=== PATIENT | female | born 1995 | race Caucasian/White ===

== ENCOUNTER 2022-04-22 12:31 | Inpatient (IN) ==
[2022-04-22 14:21] LABS: Hematocrit (blood only) 19.7 % (37.0-47.0); Hemoglobin 5.8 g/dl (12.0-16.0); Mean Corpuscular Hemoglobin 21.6 pg (25.0-34.0); Mean Corpuscular Hgb Conc 29.4 g/dL (32.0-36.0); Mean Corpuscular Volume 73.2 fL (80.0-100.0); Mean Platelet Volume 10.2 fL (9.4-12.4); Platelet Count 436 K/uL (130-400); RDW Coefficient of Variation 20.1 % (11.5-14.5); RDW Standard Deviation 53.6 fL (36.4-46.3); Red Blood Count 2.69 M/uL (4.20-5.40); White Blood Count 6.65 K/ul (4.8-10.8)
[2022-04-22] MEDS ORDERED: SODIUM CHLORIDE 0.9% 250 ML IV PRN (14:27)
[2022-04-22 14:28] LABS: BUN Creatinine Ratio 22.4 (10-20); Calcium 8.9 mg/dl (8.5-10.1); Creatinine Clr Calc Pharmacy 134.6 ml/min; Est GFR (African American) 149.5 ml/min; Potassium 3.7 mmol/L (3.5-5.1)
[2022-04-22] MEDS ORDERED: SODIUM CHLORIDE 0.9% 1000ML 1,000 ML IV SCH (14:30)
[2022-04-22 14:48] LABS: Partial Thromboplastin Ratio 0.8; Partial Thromboplastin Time 22.2 Seconds (21.0-31.0); Prothrombin Time 10.5 Seconds (9.0-12.0)
--- NOTE | 2022-04-22 16:32 | Ultrasound Report ---
PELVIC ULTRASOUND, TRANSABDOMINAL AND TRANSVAGINAL HISTORY: vaginal bleeding COMPARISON: Pelvic ultrasound 05/10/2021. FINDINGS: Uterus: 8.6 x 5.4 x 4.4 cm. The uterus is retroflexed. Within the posterior wall of the uterus there is an irregular avascular complex area which favors a complex fluid collection. This is new from the prior study and appears separate from the endometrium. This measures approximately 21 x 12 mm. This i s nonspecific and could represent a blood clot, focus of adenomyosis, or possibly an abscess. Endometrial stripe: 2 mm in thickness. Right ovary: Normal in size and demonstrates normal color flow. Left ovary: Normal in size and demonstrates normal color flow. Miscellaneous:Trace pelvic free fluid. IMPRESSION: Within the posterior wall of the uterus there is an irregular avascular complex area which favors a c omplex fluid collection. This is new from the prior study and appears separate from the endometrium. This measures approximately 21 x 12 mm. This is nonspecific and could represent a blood clot, focus o f adenomyosis, or possibly an abscess. ACT 112: Negative or not required by law. Electronically signed by: Pedro Pablo Schaffer M.D. 04/22/2022 4:30 PM
--- NOTE | 2022-04-22 17:29 | History & Physical Report ---
Date of Service April 22, 2022 Assessment & Plan (1) Abnormal uterine bleeding: Plan: Aygestin tid (2) Anemia: Plan: transfuse 2 units PRBC's History of Present Illness Chief Complaint: vaginal bleeding Primary Care Provider: TERRENCE PCP 26 F P1001 with onset of heavy vaginal bleeding that started last PM accompanied by some large clots. Patient continued to bleed today and had some lightheadedness when getting up to walk. She was found to be severely anemic and was ordered blood. She has a Nexplanon in her right arm and had an IUD after giving which caused heavy bleeding as well. No history of nose bleeds, clotting disorder or eay bruising. No trauma history or recent intercourse noted by patient. She had a pelvic by Dr. Snell with not much bleeding noted. HCG is negative and ultrasound was pretty much normal. Allergies Allergy/AdvReac Type Severity Reaction Status Date / Time latex Allergy Intermediate ITCHY HIVES Verified 04/22/22 17:09 Home Medications Medication Instructions Recorded Confirmed Type norethindrone acetate 1.5 1 tab PO QPM 04/22/22 04/22/22 History mg-ethinyl estradiol 30 mcg tablet () Patient History Social History Smoking Status: Never smoker Preferred Language: Polish Feels Safe at Home: Yes OB History x1 2019 AD TAKER History had poly removed from uterus in [place] in 2016 Review of Systems All systems reviewed & are unremarkable except as noted in HPI & below Physical Exam Constitutional: WD/WN, vitals as above Eyes: PERRL, conjunctivae normal, anicteric sclerae Respiratory: normal respiratory effort, lungs clear to auscultation Cardiovascular: Rate/Rhythm: regular rate and regular rhythm Gastrointestinal (Abdomen): Inspection/Auscultation: abdomen normal to inspection no mass. no guarding or rebound Musculoskeletal: Extremities: extremities normal to inspection Skin: no rashes, warm and dry Neurologic: patellar DTR's 2+ bilat, sensation intact Psychiatric: A+Ox3, euthymic affect Results & Data ([facility]) Vital Signs (Past 12 Hours) Vital Signs Temp Pulse Pulse Resp BP BP Pulse Ox 04/22/22 16:11 93 H 16 99 04/22/22 14:54 82 18 133/77 96 04/22/22 12:51 36.6 C 89 18 149/91 H 100 O2 Del Method 04/22/22 16:11 Room Air 04/22/22 14:54 Room Air 04/22/22 12:51 Room Air Laboratory Results 04/22/22 04/22/22 04/22/22 13:50 13:50 13:50 WBC 6.65 RBC 2.69 L Hgb 5.8 L* Hct 19.7 L* MCV 73.2 L MCH 21.6 L MCHC 29.4 L RDW Std Deviation 53.6 H RDW Coeff of Thomas 20.1 H Plt Count 436 H MPV 10.2 PT 10.5 INR 1.0 APTT 22.2 PTT Ratio 0.8 Sodium 137 Potassium 3.7 Chloride 107 Carbon Dioxide 26 Anion Gap 4 BUN 13 Creatinine 0.58 L Est Cr Clr Drug Dosing 134.6 Est GFR ( Amer) 149.5 Est GFR (Non-Af Amer) 129.0 BUN/Creatinine Ratio 22.4 H Glucose 89 Calcium 8.9 HCG, Quant SARS-CoV-2, RNA, NAAT Blood Type Blood Type Recheck Antibody Screen Crossmatch 04/22/22 04/22/22 04/22/22 13:50 13:55 16:09 WBC RBC Hgb Hct MCV MCH MCHC RDW Std Deviation RDW Coeff of Thomas Plt Count MPV PT INR APTT PTT Ratio Sodium Potassium Chloride Carbon Dioxide Anion Gap BUN Creatinine Est Cr Clr Drug Dosing Est GFR ( Amer) Est GFR (Non-Af Amer) BUN/Creatinine Ratio Glucose Calcium HCG, Quant < 1 SARS-CoV-2, RNA, NAAT NEGATIVE Blood Type O Positive Blood Type Recheck Antibody Screen NEGATIVE Crossmatch See Detail 04/22/22 16:16 WBC RBC Hgb Hct MCV MCH MCHC RDW Std Deviation RDW Coeff of Thomas Plt Count MPV PT INR APTT PTT Ratio Sodium Potassium Chloride Carbon Dioxide Anion Gap BUN Creatinine Est Cr Clr Drug Dosing Est GFR ( Amer) Est GFR (Non-Af Amer) BUN/Creatinine Ratio Glucose Calcium HCG, Quant SARS-CoV-2, RNA, NAAT Blood Type Blood Type Recheck O Positive Antibody Screen Crossmatch Code Status & VTE Plan VTE Prophylaxis Plan VTE Prophylaxis will be ordered: No
--- NOTE | 2022-04-22 18:01 | Emergency Department Note ---
History of Present Illness General Chief complaint: Vaginal Bleeding Stated complaint: EXCESSIVE VAGINAL BLEEDING Time Seen by Provider: 04/22/22 14:27 History of Present Illness Provider Complaint: + vaginal bleeding Onset (ago): year(s) (1) Current Pain Intensity: 0 Vaginal discharge: + dark blood and + blood clots Patient Confirmed : No Associated symptoms: no abdominal pain, no fever/chills, no rash or no seizure Patient reports that her vaginal bleeding has been on and off for the last year. Patient reports that in April 2021 she had her IUD removed later in 2021 she had her Nexplanon placed, she is not sure when that was placed. Patient reports no pelvic trauma. Last sexual intercourse was 3 weeks ago. Patient states that in the last 12 hours she has soaked 8 pads. Patient states he follows up with [facility]. Patient states she has been to [facility] ED multiple times and they have told her her hemoglobin is stable and discharge her home. No melena or hematochezia. No history of bleeding disorders. No blood thinners. Home Medications Medication Instructions Recorded Confirmed Type norethindrone acetate 1.5 1 tab PO QPM 04/22/22 04/22/22 History mg-ethinyl estradiol 30 mcg tablet () Allergies Allergy/AdvReac Type Severity Reaction Status Date / Time latex Allergy Intermediate ITCHY HIVES Verified 04/22/22 17:09 Past Med/Surg History Medical History (Updated 04/22/22 @ 18:01 by Keven Snell) Abnormal uterine bleeding No pertinent family history Surgical History (Updated 04/22/22 @ 17:56 by Keven Snell) No pertinent past surgical history Social History Smoking Status: Never smoker Preferred Language: Solomon Islander Feels Safe at Home: Yes Physical Exam Vital Signs: Vital Signs - 24 hr 04/22/22 12:51 04/22/22 14:54 04/22/22 16:11 Temperature 36.6 C Temperature Source Temporal Artery Sc an Pulse Rate 89 Pulse Rate [Apical ] 82 93 H Respiratory Rate 18 18 16 Respiratory Effort / Characteristics Non-Labored Sponta neous Respiratory Depth Normal Normal Respiratory Patter n Regular Blood Pressure 149/91 H Blood Pressure [Le ft Arm] 133/77 Blood Pressure Tasha n 110 Blood Pressure Tasha n [Left Arm] 95 Blood Pressure Pos ition Sitting Pulse Oximetry 100 96 99 Oxygen Delivery Me thod Room Air Room Air Room Air Sepsis Recent Feve r Within 48 Hours No Sepsis New/Unexpla ined Change in Men tamika Status N/A Sepsis Action Take n by Nursing No Action Required 04/22/22 17:53 Temperature 36.8 C Temperature Source Oral Pulse Rate 92 H Pulse Rate [Apical ] Respiratory Rate 15 Respiratory Effort / Characteristics Respiratory Depth Respiratory Patter n Blood Pressure 136/81 Blood Pressure [Le ft Arm] Blood Pressure Tasha n 99 Blood Pressure Tasha n [Left Arm] Blood Pressure Pos ition Sitting Pulse Oximetry 100 Oxygen Delivery Me thod Sepsis Recent Feve r Within 48 Hours Sepsis New/Unexpla ined Change in Men tamika Status Sepsis Action Take n by Nursing Physical Exam: Physical Exam HENT: Exam performed. - Head: Normocephalic and atraumatic. CV: Normal rate, regular rhythm, normal heart sounds and intact distal pulses. There is no peripheral edema. Palpable radial pulses bue. PULM/CHEST: Effort normal and breath sounds normal. No respiratory distress. No stridor. He has no wheezes. He has no rales. ABD: The abdomen is soft. There is no tenderness. NEURO: Motor and sensation grossly intact. SKIN: Pale AGRICULTURAL COMMODITIES INSPECTOR: Conducted with female nursing missileman Geena at bedside. Patient had some scant amount of blood in her vaginal vault. Cervical os is closed. No active bleeding. Course Course 1427: The patient was evaluated in room B7. A complete history and physical exam was performed Administered Medications Sodium Chloride (Nss 1000ml) 1,000 mls @ 125 mls/hr IV .Q8H MARIALUISA Stop: 05/22/22 14:29 Last Admin: 04/22/22 15:00 Dose: 125 mls/hr Documented By: OSMANY Medical Decision Making Laboratory Data Attestation: I reviewed the patient's lab results. 04/22/22 13:50 04/22/22 13:50 Lab Results 04/22/22 04/22/22 04/22/22 Range/Units 13:50 13:50 13:50 WBC 6.65 (4.8-10.8) K/ul RBC 2.69 L (4.20-5.40) M/uL Hgb 5.8 L* (12.0-16.0) g/dl Hct 19.7 L* (37.0-47.0) % MCV 73.2 L (80.0-100.0) fL MCH 21.6 L (25.0-34.0) pg MCHC 29.4 L (32.0-36.0) g/dL RDW Std Deviation 53.6 H (36.4-46.3) fL RDW Coeff of Thomas 20.1 H (11.5-14.5) % Plt Count 436 H (130-400) K/uL MPV 10.2 (9.4-12.4) fL PT 10.5 (9.0-12.0) Seconds INR 1.0 (0.9-1.1) APTT 22.2 (21.0-31.0) Seconds PTT Ratio 0.8 Sodium 137 (136-145) mmol/L Potassium 3.7 (3.5-5.1) mmol/L Chloride 107 (98-107) mmol/L Carbon Dioxide 26 (21-32) mmol/L Anion Gap 4 (3-11) BUN 13 (6-23) mg/dl Creatinine 0.58 L (0.6-1.2) mg/dl Est Cr Clr Drug Dosing 134.6 ml/min Est GFR ( Amer) 149.5 ml/min Est GFR (Non-Af Amer) 129.0 ml/min BUN/Creatinine Ratio 22.4 H (10-20) Glucose 89 (70-99(Fasting)) mg/dl Calcium 8.9 (8.5-10.1) mg/dl HCG, Quant mIU/ml SARS-CoV-2, RNA, NAAT (NEGATIVE) Blood Type Blood Type Recheck Antibody Screen Crossmatch 04/22/22 04/22/22 04/22/22 Range/Units 13:50 13:55 16:09 WBC (4.8-10.8) K/ul RBC (4.20-5.40) M/uL Hgb (12.0-16.0) g/dl Hct (37.0-47.0) % MCV (80.0-100.0) fL MCH (25.0-34.0) pg MCHC (32.0-36.0) g/dL RDW Std Deviation (36.4-46.3) fL RDW Coeff of Thomas (11.5-14.5) % Plt Count (130-400) K/uL MPV (9.4-12.4) fL PT (9.0-12.0) Seconds INR (0.9-1.1) APTT (21.0-31.0) Seconds PTT Ratio Sodium (136-145) mmol/L Potassium (3.5-5.1) mmol/L Chloride (98-107) mmol/L Carbon Dioxide (21-32) mmol/L Anion Gap (3-11) BUN (6-23) mg/dl Creatinine (0.6-1.2) mg/dl Est Cr Clr Drug Dosing ml/min Est GFR ( Amer) ml/min Est GFR (Non-Af Amer) ml/min BUN/Creatinine Ratio (10-20) Glucose (70-99(Fasting)) mg/dl Calcium (8.5-10.1) mg/dl HCG, Quant < 1 mIU/ml SARS-CoV-2, RNA, NAAT NEGATIVE (NEGATIVE) Blood Type O Positive Blood Type Recheck Antibody Screen NEGATIVE Crossmatch See Detail 04/22/22 Range/Units 16:16 WBC (4.8-10.8) K/ul RBC (4.20-5.40) M/uL Hgb (12.0-16.0) g/dl Hct (37.0-47.0) % MCV (80.0-100.0) fL MCH (25.0-34.0) pg MCHC (32.0-36.0) g/dL RDW Std Deviation (36.4-46.3) fL RDW Coeff of Thomas (11.5-14.5) % Plt Count (130-400) K/uL MPV (9.4-12.4) fL PT (9.0-12.0) Seconds INR (0.9-1.1) APTT (21.0-31.0) Seconds PTT Ratio Sodium (136-145) mmol/L Potassium (3.5-5.1) mmol/L Chloride (98-107) mmol/L Carbon Dioxide (21-32) mmol/L Anion Gap (3-11) BUN (6-23) mg/dl Creatinine (0.6-1.2) mg/dl Est Cr Clr Drug Dosing ml/min Est GFR ( Amer) ml/min Est GFR (Non-Af Amer) ml/min BUN/Creatinine Ratio (10-20) Glucose (70-99(Fasting)) mg/dl Calcium (8.5-10.1) mg/dl HCG, Quant mIU/ml SARS-CoV-2, RNA, NAAT (NEGATIVE) Blood Type Blood Type Recheck O Positive Antibody Screen Crossmatch Imaging Data Attestation: I personally reviewed and interpreted this imaging study as follows: Radiologist's Impression: Pelvis Ultrasound 04/22/22 14:45 PELVIC ULTRASOUND, TRANSABDOMINAL AND TRANSVAGINAL HISTORY: vaginal bleeding COMPARISON: Pelvic ultrasound 05/10/2021. FINDINGS: Uterus: 8.6 x 5.4 x 4.4 cm. The uterus is retroflexed. Within the posterior wall of the uterus there is an irregular avascular complex area which favors a complex fluid collection. This is new from the prior study and appears separate from the endometrium. This measures approximately 21 x 12 mm. This is nonspecific and could represent a blood clot, focus of adenomyosis, or possibly an abscess. Endometrial stripe: 2 mm in thickness. Right ovary: Normal in size and demonstrates normal color flow. Left ovary: Normal in size and demonstrates normal color flow. Miscellaneous:Trace pelvic free fluid. IMPRESSION: Within the posterior wall of the uterus there is an irregular avascular complex area which favors a complex fluid collection. This is new from the prior study and appears separate from the endometrium. This measures approximately 21 x 12 mm. This is nonspecific and could represent a blood clot, focus of adenomyosis, or possibly an abscess. ACT 112: Negative or not required by law. Electronically signed by: Pedro Pablo Schaffer M.D. 04/22/2022 4:30 PM MDM Narrative Cardiac monitoring: An order was placed for continuous cardiac monitoring. The monitor shows a rate of 90 with sinus rhythm Labs show hemoglobin of 5.8. Patient be transfused 2 packed units of red blood cells in the emergency department. External medical records were obtained based on the upper caser and in January 2022 the patient had a hemoglobin of 13. The patient had an ultrasound in January 2022 at [facility] which showed a normal thickness endometrium diffuse heterogeneity of the uterine myometrium without a distal discrete myometrial Mass. Adenomyomatosis can have this appearance. Ovaries were normal Ultrasound today showed that there is an irregular avascular complex mass/fluid collection in the posterior wall of the uterus measuring 21 x 12 mm which could represent a blood clot adenomyosis or possibly an abscess. Clinically it is not thought to be an abscess as patient has not had any fevers White blood cell count is within normal limits and her symptoms have been going on for over a year. Is most likely a blood clot. I discussed the case with METAL SMEL[facility] Dr. Metz. Dr. Nevarez came down evaluated the patient and agreed to transfuse the patient admit the patient to his service. Impression & Plan Anemia, Vaginal bleeding Discharge Plan Visit Data Chief Complaint: Vaginal Bleeding Stated Complaint: EXCESSIVE VAGINAL BLEEDING ED Provider: Keven Snell Discharge Problem: Anemia, Vaginal bleeding Patient Disposition: Admitted As Inpatient Forms Stand Alone Forms: [facility] Prescriptions Prescriptions: No Action norethindrone ac-eth estradiol [ (21)] 1.5-30 mg-mcg tablet 1 tab PO QPM Rx Instructions: PER PT "TAKES AT 1700" Referrals Referrals: PCP,NO [Primary Care Provider] -
[2022-04-22] MEDS ORDERED: IBUPROFEN 600 MG TAB PO PRN (19:18)
[2022-04-22] MEDS ORDERED: ONDANSETRON INJ 2 MG/ML 2 ML VIAL IV PRN (19:18)
[2022-04-22] MEDS ORDERED: ACETAMINOPHEN 325 MG TAB PO PRN (19:18)
[2022-04-22] MEDS: NORETHINDRONE 5 MG TAB PO SCH (20:43)
[2022-04-22] MEDS: LACTATED RINGER'S 1,000 ML IV SCH (20:43)
[2022-04-23 01:19] LABS: Hematocrit (blood only) 23.1 % (37.0-47.0); Hemoglobin 7.1 g/dl (12.0-16.0)
[2022-04-23] MEDS: LACTATED RINGER'S 1,000 ML IV SCH (04:44)
[2022-04-23] MEDS: NORETHINDRONE 5 MG TAB PO SCH (08:45)
[2022-04-23 08:56] LABS: Basophils # (auto) 0.09 K/uL (0-0.2); Basophils % (auto) 1.3 %; Eosinophils # (auto) 0.05 K/uL (0-0.50); Eosinophils % (auto) 0.7 %; Hematocrit (blood only) 24.8 % (37.0-47.0); Hemoglobin 7.9 g/dl (12.0-16.0); Immature Granulocytes # (auto) 0.03 K/uL (0.01-0.20); Immature Granulocytes % (auto) 0.4 %; Lymphocytes # (auto) 1.76 K/uL (1.2-3.4); Lymphocytes % (auto) 26.3 %; Mean Corpuscular Hgb Conc 31.9 g/dL (32.0-36.0); Mean Corpuscular Volume 75.4 fL (80.0-100.0); Mean Platelet Volume 9.6 fL (9.4-12.4); Neutrophils # (auto) 4.16 K/uL (1.40-6.50); Neutrophils % (auto) 62.3 %; Platelet Count 361 K/uL (130-400); RDW Coefficient of Variation 19.9 % (11.5-14.5); RDW Standard Deviation 54.5 fL (36.4-46.3); Red Blood Count 3.29 M/uL (4.20-5.40); White Blood Count 6.69 K/ul (4.8-10.8)
[2022-04-23 09:16] LABS: Albumin Globulin Ratio 1.9 (0.9-2); Albumin Level 3.9 gm/dl (3.4-5.0); BUN Creatinine Ratio 11.3 (10-20); Bilirubin,Total 0.6 mg/dl (0.2-1.0); Calcium 8.7 mg/dl (8.5-10.1); Creatinine Clr Calc Pharmacy 125.9 ml/min; Est GFR (African American) 146.3 ml/min; Est GFR (Non-African American) 126.2 ml/min; Globulin 2.1 gm/dl (2.5-4.0); Potassium 3.8 mmol/L (3.5-5.1)
--- NOTE | 2022-04-23 09:22 | Progress Note ---
Date of Service April 23, 2022 Assessment & Plan (1) Abnormal uterine bleeding: Plan: Aygestin tid for total of 5 days f/u in clinic for Nexplanon removal within next 2-3 days (2) Anemia: Plan: s/p 2 units PRBC's Hgb 7.9 this AM Anemia type: unspecified type Qualified Code(s): D64.9 - Anemia, unspecified Admission and Anticipated Discharge Date Admission Date: April 22, 2022 Subjective Patient comfortable in bed, has not eaten breakfast yet. Hungry. States the bleeding has significantly improved. Denies any shortness of breath, chest pain or dizziness. Otherwise feeling well Review of Systems Constitutional: as per Subjective / HPI Physical Exam Constitutional: WD/WN, vitals as above Respiratory: normal respiratory effort, lungs clear to auscultation Cardiovascular: RRR, no murmur, no edema Gastrointestinal (Abdomen): normal bowel sounds, soft, nontender, no hepatosplenomegaly Results & Data ([facility]) Vital Signs (Past 12 Hours) Vital Signs Temp Pulse Pulse Resp BP BP BP 04/23/22 07:50 37.2 C 80 18 130/80 04/23/22 04:40 36.9 C 81 18 118/71 04/22/22 23:05 37.2 C 72 18 113/68 04/22/22 22:50 37.0 C 79 18 113/67 04/22/22 22:50 37.0 C 79 18 113/67 04/22/22 21:50 36.9 C 83 16 101/59 L Pulse Ox O2 Del Method 04/23/22 07:50 100 Room Air 04/23/22 04:40 100 Room Air 04/22/22 23:05 100 04/22/22 22:50 100 04/22/22 22:50 100 Room Air 04/22/22 21:50 100 Laboratory Results Laboratory Results WBC 6.69 K/ul (4.8-10.8) 04/23/22 08:39 RBC 3.29 M/uL (4.20-5.40) L 04/23/22 08:39 Hgb 7.9 g/dl (12.0-16.0) L 04/23/22 08:39 Hct 24.8 % (37.0-47.0) L 04/23/22 08:39 MCV 75.4 fL (80.0-100.0) L 04/23/22 08:39 MCH 24.0 pg (25.0-34.0) L 04/23/22 08:39 MCHC 31.9 g/dL (32.0-36.0) L 04/23/22 08:39 RDW Std Deviation 54.5 fL (36.4-46.3) H 04/23/22 08:39 RDW Coeff of Thomas 19.9 % (11.5-14.5) H 04/23/22 08:39 Plt Count 361 K/uL (130-400) 04/23/22 08:39 MPV 9.6 fL (9.4-12.4) 04/23/22 08:39 Immature Gran % (Auto) 0.4 % 04/23/22 08:39 Neut % (Auto) 62.3 % 04/23/22 08:39 Lymph % (Auto) 26.3 % 04/23/22 08:39 [place] % (Auto) 9.0 % 04/23/22 08:39 Eos % (Auto) 0.7 % 04/23/22 08:39 Baso % (Auto) 1.3 % 04/23/22 08:39 Neut # (Auto) 4.16 K/uL (1.40-6.50) 04/23/22 08:39 Lymph # (Auto) 1.76 K/uL (1.2-3.4) 04/23/22 08:39 [place] # (Auto) 0.60 K/uL (0.11-0.59) H 04/23/22 08:39 Eos # (Auto) 0.05 K/uL (0-0.50) 04/23/22 08:39 Baso # (Auto) 0.09 K/uL (0-0.2) 04/23/22 08:39 Immature Gran # (Auto) 0.03 K/uL (0.01-0.20) 04/23/22 08:39 PT 10.5 Seconds (9.0-12.0) 04/22/22 13:50 INR 1.0 (0.9-1.1) 04/22/22 13:50 APTT 22.2 Seconds (21.0-31.0) 04/22/22 13:50 PTT Ratio 0.8 04/22/22 13:50 Sodium 139 mmol/L (136-145) 04/23/22 08:39 Potassium 3.8 mmol/L (3.5-5.1) 04/23/22 08:39 Chloride 111 mmol/L (98-107) H 04/23/22 08:39 Carbon Dioxide 23 mmol/L (21-32) 04/23/22 08:39 Anion Gap 5 (3-11) 04/23/22 08:39 BUN 7 mg/dl (6-23) 04/23/22 08:39 Creatinine 0.62 mg/dl (0.6-1.2) 04/23/22 08:39 Est Cr Clr Drug Dosing 125.9 ml/min 04/23/22 08:39 Est GFR ( Amer) 146.3 ml/min 04/23/22 08:39 Est GFR (Non-Af Amer) 126.2 ml/min 04/23/22 08:39 BUN/Creatinine Ratio 11.3 (10-20) 04/23/22 08:39 Glucose 92 mg/dl (70-99(Fasting)) 04/23/22 08:39 Calcium 8.7 mg/dl (8.5-10.1) 04/23/22 08:39 Total Bilirubin 0.6 mg/dl (0.2-1.0) 04/23/22 08:39 AST 9 U/L (13-39) L 04/23/22 08:39 ALT 7 U/L (7-52) 04/23/22 08:39 Alkaline Phosphatase 33 U/L (34-104) L 04/23/22 08:39 Total Protein 6.0 gm/dl (6.0-8.3) 04/23/22 08:39 Albumin 3.9 gm/dl (3.4-5.0) 04/23/22 08:39 Globulin 2.1 gm/dl (2.5-4.0) L 04/23/22 08:39 Albumin/Globulin Ratio 1.9 (0.9-2) 04/23/22 08:39 HCG, Quant < 1 mIU/ml 04/22/22 13:50 SARS-CoV-2, RNA, NAAT NEGATIVE (NEGATIVE) 04/22/22 16:09 Blood Type O Positive 04/22/22 13:55 Blood Type Recheck O Positive 04/22/22 16:16 Antibody Screen NEGATIVE 04/22/22 13:55 Crossmatch See Detail 04/22/22 13:55 Impressions Pelvis Ultrasound 04/22/22 14:45 PELVIC ULTRASOUND, TRANSABDOMINAL AND TRANSVAGINAL HISTORY: vaginal bleeding COMPARISON: Pelvic ultrasound 05/10/2021. FINDINGS: Uterus: 8.6 x 5.4 x 4.4 cm. The uterus is retroflexed. Within the posterior wall of the uterus there is an irregular avascular complex area which favors a complex fluid collection. This is new from the prior study and appears separate from the endometrium. This measures approximately 21 x 12 mm. This is nonspecific and could represent a blood clot, focus of adenomyosis, or possibly an abscess. Endometrial stripe: 2 mm in thickness. Right ovary: Normal in size and demonstrates normal color flow. Left ovary: Normal in size and demonstrates normal color flow. Miscellaneous:Trace pelvic free fluid. IMPRESSION: Within the posterior wall of the uterus there is an irregular avascular complex area which favors a complex fluid collection. This is new from the prior study and appears separate from the endometrium. This measures approximately 21 x 12 mm. This is nonspecific and could represent a blood clot, focus of adenomyosis, or possibly an abscess. ACT 112: Negative or not required by law. Electronically signed by: Pedro Pablo Schaffer M.D. 04/22/2022 4:30 PM Transvaginal US 04/22/22 14:45 PELVIC ULTRASOUND, TRANSABDOMINAL AND TRANSVAGINAL HISTORY: vaginal bleeding COMPARISON: Pelvic ultrasound 05/10/2021. FINDINGS: Uterus: 8.6 x 5.4 x 4.4 cm. The uterus is retroflexed. Within the posterior wall of the uterus there is an irregular avascular complex area which favors a complex fluid collection. This is new from the prior study and appears separate from the endometrium. This measures approximately 21 x 12 mm. This is nonspecific and could represent a blood clot, focus of adenomyosis, or possibly an abscess. Endometrial stripe: 2 mm in thickness. Right ovary: Normal in size and demonstrates normal color flow. Left ovary: Normal in size and demonstrates normal color flow. Miscellaneous:Trace pelvic free fluid.
[2022-04-23 09:24] LABS: Anisocytosis Present; Hypochromasia Present; Polychromasia 1+
--- NOTE | 2022-04-28 13:57 | Coding Query ---
ANEMIA To promote full compliance with coding requirements relating to patient care, physician participation is requested in all cases of ecommerce marketing specialist uncertainty. Please assist us with the question(s) below: Coding Question(s): The record reflects the following clinical findings: Anemia - ER documents, "Labs show hemoglobin of 5.8. Patient be transfused 2 packed units of red blood cells in the emergency department. External medical records were obtained based on the high risk case manager and in January 2022 the patient had a hemoglobin of 13". If these findings are indicative of anemia, please specify the known or suspected type by placing an "X" within the parenthesis (x). If other, please document type. Examples are: ( x) Acute blood loss anemia ( ) Acute Postoperative blood loss anemia ( ) Acute postoperative anemia due to dilutional fluids ( ) Chronic blood loss anemia ( ) Anemia of chronic disease ( ) Aplastic anemia ( ) Anemia due to renal disease ( ) Anemia in neoplastic disease ( ) Iron deficient anemia ( ) Anemia, unspecified or other ( ) Other: (please specify) ( ) Unable to determine Thank you Cierra Ocasio [facility]
--- NOTE | 2022-05-01 08:12 | Discharge Summary ---
Date of Service May 01, 2022 Admission HPI Per Admitting Provider 26 F P1001 with onset of heavy vaginal bleeding that started last PM accompanied by some large clots. Patient continued to bleed today and had some lightheadedness when getting up to walk. She was found to be severely anemic and was ordered blood. She has a Nexplanon in her right arm and had an IUD after giving which caused heavy bleeding as well. No history of nose bleeds, clotting disorder or eay bruising. No trauma history or recent intercourse noted by patient. She had a pelvic by Dr. Snell with not much bleeding noted. HCG is negative and ultrasound was pretty much normal. Admission Exam (Per Admitting) Constitutional WD/WN, vitals as above Respiratory normal respiratory effort, lungs clear to auscultation Cardiovascular RRR, no murmur, no edema Gastrointestinal (Abdomen) normal bowel sounds, soft, nontender, no hepatosplenomegaly Discharge Data Consultations 04/22/22 16:54 ED Decision to Admit Stat Hospital Course (1) Abnormal uterine bleeding: Aygestin tid for total of 5 days f/u in clinic for Nexplanon removal within next 2-3 days (2) Anemia: s/p 2 units PRBC's Hgb 7.9 this AM
== END 2022-04-23 11:45 | disposition home or self-care (01) | DRG 760 ==
LOC: ED 12:31 → 4E2 17:09

== ENCOUNTER 2022-06-11 12:53 | Observation (INO) ==
[2022-06-11] MEDS ORDERED: SODIUM CHLORIDE 0.9% 1000ML 1,000 ML IV ONE (14:32)
--- NOTE | 2022-06-11 14:35 | Emergency Department Note ---
History of Present Illness General Chief complaint: Vaginal Bleeding Stated complaint: EXCESSIVE VAGINAL BLEEDING Time Seen by Provider: 06/11/22 14:20 History of Present Illness Maximum Pain Intensity: 2 26 year old female who presents to ED today with c/o vaginal bleeding. Patient reports an ongoing issue with this and has been admitted to the hospital twice in the last 3 months for transfusions including in this hospital as well as in [facility]. Her last admission was in April at [facility]. She follows with Dr. 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 During her most recent admission, she had her Nexplanon emergently taken out as it was considered to be a potential cause. She was placed on high dose Estrogen pill to stop her bleeding which did help. She has since been transitioned to a lower dose BC and bleeding has resumed. Her bleeding has been increasing over the last 2-3 weeks since the change in pill. She notes taking it consistently without missed doses. She reports passing clots and has to change a diaper about once every 2 hours. Last night and today she has felt dizzy and like she was going to pass out which prompted ED evaluation. She has not passed out. She denies fever/chills, n/v, chest pain, SOB, abdominal pain, urinary symptoms. Home Medications Medication Instructions Recorded Confirmed Type Iron Iv 1 dose IV DIRECTED 06/11/22 06/11/22 History ibuprofen 800 mg tablet 800 mg PO BID PRN Pain 06/11/22 06/11/22 History norethindrone acetate 5 mg tablet 5 mg PO DAILY 06/11/22 06/11/22 History Allergies Allergy/AdvReac Type Severity Reaction Status Date / Time latex Allergy Intermediate ITCHY HIVES Verified 06/11/22 15:21 Past Med/Surg History Medical History Abnormal uterine bleeding No pertinent family history Surgical History No pertinent past surgical history Social History Smoking Status: Never smoker Second Hand Exposure: No; Hx Alcohol Use: No Hx Substance Use: No Preferred Language: Turkmen Communication Ability: Effective Weaver Wire Loom Required: No Beliefs That Will Affect Care: None Current Living Situation: Alone Current Living Situation Comment: daughter Feels Safe at Home: Yes Assistive Devices: None Physical Exam Vital Signs Vital Signs - 24 hr 06/11/22 12:59 06/11/22 14:35 06/11/22 14:41 Temperature 36.8 C Temperature Source Temporal Artery Scan Pulse Rate 106 H 88 85 Pulse Rate from SpO2 Sensor Respiratory Rate 18 17 Blood Pressure 134/80 147/98 H Blood Pressure Mean 98 114 Pulse Oximetry 99 100 Oxygen Delivery Method Room Air Room Air Sepsis Recent Fever Within 48 Hours No Sepsis New/Unexplained Change in Mental Status No Sepsis Action Taken by Nursing No Action Required 06/11/22 14:40 06/11/22 14:50 06/11/22 15:00 Temperature Temperature Source Pulse Rate 86 94 H 84 Pulse Rate from SpO2 Sensor 86 95 H 85 Respiratory Rate 18 16 18 Blood Pressure Blood Pressure Mean Pulse Oximetry 100 100 100 Oxygen Delivery Method Sepsis Recent Fever Within 48 Hours Sepsis New/Unexplained Change in Mental Status Sepsis Action Taken by Nursing 06/11/22 15:01 06/11/22 15:01 06/11/22 15:09 Temperature Temperature Source Pulse Rate 83 83 Pulse Rate from SpO2 Sensor 85 83 Respiratory Rate 20 19 Blood Pressure 123/84 Blood Pressure Mean 97 Pulse Oximetry 100 100 Oxygen Delivery Method Sepsis Recent Fever Within 48 Hours Sepsis New/Unexplained Change in Mental Status Sepsis Action Taken by Nursing 06/11/22 16:00 Temperature Temperature Source Pulse Rate Pulse Rate from SpO2 Sensor Respiratory Rate Blood Pressure 113/70 Blood Pressure Mean 84 Pulse Oximetry Oxygen Delivery Method Sepsis Recent Fever Within 48 Hours Sepsis New/Unexplained Change in Mental Status Sepsis Action Taken by Nursing Constitutional: alert and oriented x3. no acute distress. HEENT: normocephalic, atraumatic. normal conjunctiva.PERRLA. EOM's grossly intact. TMs pearly walker without effusion. Pharynx pink without exudate. Tonsils nonenlarged. Mucus membranes moist Respiratory: lungs are clear to auscultation without wheezes, rhonchi, or rales bilaterally. equal chest rise. normal respiratory effort, no accessory muscle use. Cardiovascular: normal heart sounds without murmur. regular rate and rhythm. GI: abdomen is soft, nontender. nl bowel sounds present throughout. No palpable masses. No rebound tenderness or guarding. No CVA tenderness Psych:appropriate mood and affect. Course Administered Medications Miscellaneous (Patient's Own Oral Contraceptive) 2 each PO 1730,2100 MARIALUISA Stop: 06/12/22 21:01 Last Admin: 06/11/22 17:26 Dose: 2 each Documented By: JOANNA Discontinued Medications Sodium Chloride (Nss 1000ml) 1,000 mls @ 999 mls/hr IV .[id number] ONE Stop: 06/11/22 15:32 Last Infusion: 06/11/22 16:36 Dose: 0 mls/hr Documented By: Admin: 06/11/22 14:38 Dose: 999 mls/hr Documented By: JAH Critical Care Time Critical Care Time: Yes I have personally spent greater than 35 minutes of critical care time in the direct management of this patient. This includes bedside care, interpretation of diagnostic studies, and testing, discussion with consultants, patient, and family members, and other required patient management activities. This 35 minutes is in excess of all separately billable procedures. Medical Decision Making Differential Diagnosis dysfunctional uterine bleeding, ovarian cyst, , malignancy, hemophilia as well as other pathologies Laboratory Data Attestation: I reviewed the patient's lab results. 06/11/22 14:20 06/11/22 14:20 Lab Results 06/11/22 06/11/22 06/11/22 Range/Units 14:20 14:20 14:20 WBC 9.42 (4.8-10.8) K/ul RBC 2.92 L (4.20-5.40) M/uL Hgb 7.0 L (12.0-16.0) g/dl Hct 23.9 L (37.0-47.0) % MCV 81.8 (80.0-100.0) fL MCH 24.0 L (25.0-34.0) pg MCHC 29.3 L (32.0-36.0) g/dL RDW Std Deviation 72.1 H (36.4-46.3) fL RDW Coeff of Thomas 24.2 H (11.5-14.5) % Plt Count 356 (130-400) K/uL MPV 10.1 (9.4-12.4) fL PT (9.0-12.0) Seconds INR (0.9-1.1) APTT (21.0-31.0) Seconds PTT Ratio Sodium 140 (136-145) mmol/L Potassium 4.5 (3.5-5.1) mmol/L Chloride 109 H (98-107) mmol/L Carbon Dioxide 26 (21-32) mmol/L Anion Gap 5 (3-11) BUN 10 (6-23) mg/dl Creatinine 0.63 (0.6-1.2) mg/dl Est Cr Clr Drug Dosing 123.9 ml/min Est GFR ( Amer) 145.5 ml/min Est GFR (Non-Af Amer) 125.5 ml/min BUN/Creatinine Ratio 15.9 (10-20) Glucose 101 H (70-99(Fasting)) mg/dl Calcium 8.8 (8.6-10.3) mg/dl HCG, Quant mIU/ml SARS-CoV-2, RNA, NAAT (NEGATIVE) Blood Type O Positive Antibody Screen POSITIVE A Antibody Identification Anti-K Antigen Identification K Antigen - NEGATIVE Crossmatch See Detail 06/11/22 06/11/22 06/11/22 Range/Units 14:20 14:49 14:53 WBC (4.8-10.8) K/ul RBC (4.20-5.40) M/uL Hgb (12.0-16.0) g/dl Hct (37.0-47.0) % MCV (80.0-100.0) fL MCH (25.0-34.0) pg MCHC (32.0-36.0) g/dL RDW Std Deviation (36.4-46.3) fL RDW Coeff of Thomas (11.5-14.5) % Plt Count (130-400) K/uL MPV (9.4-12.4) fL PT 10.5 (9.0-12.0) Seconds INR 1.0 (0.9-1.1) APTT 23.4 (21.0-31.0) Seconds PTT Ratio 0.9 Sodium (136-145) mmol/L Potassium (3.5-5.1) mmol/L Chloride (98-107) mmol/L Carbon Dioxide (21-32) mmol/L Anion Gap (3-11) BUN (6-23) mg/dl Creatinine (0.6-1.2) mg/dl Est Cr Clr Drug Dosing ml/min Est GFR ( Amer) ml/min Est GFR (Non-Af Amer) ml/min BUN/Creatinine Ratio (10-20) Glucose (70-99(Fasting)) mg/dl Calcium (8.6-10.3) mg/dl HCG, Quant < 1 mIU/ml SARS-CoV-2, RNA, NAAT NEGATIVE (NEGATIVE) Blood Type Antibody Screen Antibody Identification Antigen Identification Crossmatch Imaging Data Radiologist's Impression: Pelvis Ultrasound 06/11/22 14:40 US pelvic complete CLINICAL HISTORY: vaginal bleeding TECHNIQUE: Real-time sonographic images of the pelvic contents were obtained with transabdominal and transvaginal technique. Comparison: Comparison is made to pelvic ultrasound 04/22/2022 FINDINGS: The uterus measures 7.2 x 4.3 x 5.0 cm. The endometrial cavity echo stripe measures 0.2 cm in thickness. Trace free fluid is in the lower uterine segment extending to the cervix. Hypoechoic area without flow in the myometrium is unchanged. Fundus is mildly heterogeneous. The right ovary measures 3.3 x 1.9 x 2.0 cm. The left ovary measures 3.6 x 2.1 x 3.3 cm. Normal appearance of the ovaries bilaterally. Doppler flow is seen bilaterally. A dominant follicle is seen on the right. There was trace fluid in the cul-de-sac. IMPRESSION: No acute abnormality. A small amount of free fluid in the lower uterine segment/cervix is nonspecific. Hypoechoic lesion in the uterus is essentially unchanged from prior exam, may represent blood clot or focus of adenomyosis. Abscess is considered less likely. ACT 112: Negative or not required by law. Electronically signed by: Aram Ramírez M.D. 06/11/2022 4:05 PM MDM Narrative 26 year old female who presents to ED today with c/o vaginal bleeding. Review of pertinent visits and patient history performed. Vital signs in ED within normal limits, afebrile. IV access was established and labs were drawn. CBC demonstrates Hgb 7. No leukocytosis or electrolyte abnormalities. Coags within normal limits. Qualitative Hcg negative. Transvaginal US obtained and demonstrates hypoechoic lesion representing possible blood clot or adenomyosis. Clinically, patient is hemodynamically stable in no acute distress. Abdominal exam is benign. She reports dizziness likely secondary to anemia. She is otherwise neurologically intact. While in ED, patient received 1L IV fluids. She will be transfused 2 units pRBC as well. Blood type is O Positive. Blood consent obtained. Given findings, I have recommended admission to hospital for transfusion for symptomatic anemia secondary to excessive vaginal bleeding as well as further work up. Case was discussed with quality control director OBGYN, Dr. Chin, graciously accepted patient for admission to her service. All exam findings and test results were discussed with patient as well as recommendations from Dr. Chin and admission plan. Patient verbalized understanding and is agreeable. She was admitted to hospital in stable cond ition. Case was discused with attending, Dr. Chase, who agrees with work up and treatment plan. Attending Attestation: I Cullen Chase MD independently saw and evaluated this patient and agree with history and physical is otherwise documented by the physician advertising assistant manager. See their note for full details. Patient resting in bed no distress although quite pale. History of anemia AUB requiring transfusion recently. Anemic again today. Consented for blood transfusion and 2 units ordered. Seen by gynecology here and will bring in for further care and management of her acute blood loss anemia secondary to abnormal uterine bleeding. Impression & Plan Dysfunctional uterine bleeding, Acute blood loss anemia Discharge Plan Visit Data Chief Complaint: Vaginal Bleeding Stated Complaint: EXCESSIVE VAGINAL BLEEDING ED Provider: Cullen Chase ED Midlevel Provider: Nancy Pedro Discharge Problem: Dysfunctional uterine bleeding, Acute blood loss anemia Patient Disposition: Admitted As Inpatient Prescriptions Prescriptions: No Action ibuprofen 800 mg Tablet 800 mg PO BID PRN (Reason: Pain) norethindrone acetate 5 mg tablet 5 mg PO DAILY Iron Iv 1 dose IV DIRECTED Rx Instructions: q thur Referrals Referrals: PCP,NO [Physician] -
[2022-06-11 14:41] LABS: Hematocrit (blood only) 23.9 % (37.0-47.0); Mean Corpuscular Hgb Conc 29.3 g/dL (32.0-36.0); Mean Corpuscular Volume 81.8 fL (80.0-100.0); Mean Platelet Volume 10.1 fL (9.4-12.4); Platelet Count 356 K/uL (130-400); RDW Coefficient of Variation 24.2 % (11.5-14.5); RDW Standard Deviation 72.1 fL (36.4-46.3); Red Blood Count 2.92 M/uL (4.20-5.40); White Blood Count 9.42 K/ul (4.8-10.8)
[2022-06-11] MEDS ORDERED: SODIUM CHLORIDE 0.9% 250 ML IV PRN ×2 (14:47→15:07)
[2022-06-11 14:57] LABS: BUN Creatinine Ratio 15.9 (10-20); Calcium 8.8 mg/dl (8.6-10.3); Creatinine Clr Calc Pharmacy 123.9 ml/min; Est GFR (African American) 145.5 ml/min; Est GFR (Non-African American) 125.5 ml/min; Potassium 4.5 mmol/L (3.5-5.1)
[2022-06-11 15:42] LABS: Partial Thromboplastin Ratio 0.9; Partial Thromboplastin Time 23.4 Seconds (21.0-31.0); Prothrombin Time 10.5 Seconds (9.0-12.0)
--- NOTE | 2022-06-11 16:07 | Ultrasound Report ---
US pelvic complete CLINICAL HISTORY: vaginal bleeding TECHNIQUE: Real-time sonographic images of the pelvic contents were obtained with transabdominal and transvaginal technique. Comparison: Comparison is made to pelvic ultrasound 04/22/2022 FINDINGS: The uterus measures 7.2 x 4.3 x 5.0 cm. The endometrial cavity echo stripe measures 0.2 cm in thickne ss. Trace free fluid is in the lower uterine segment extending to the cervix. Hypoechoic area without flow in the myometrium is unchanged. Fundus is mildly heterogeneous. The right ovary measures 3.3 x 1.9 x 2.0 cm. The left ovary measures 3.6 x 2.1 x 3.3 cm. Normal appea patrick of the ovaries bilaterally. Doppler flow is seen bilaterally. A dominant follicle is seen on th e right. There was trace fluid in the cul-de-sac. IMPRESSION: No acute abnormality. A small amount of free fluid in the lower uterine segment/cervix is nonspecific . Hypoechoic lesion in the uterus is essentially unchanged from prior exam, may represent blood clot or focus of adenomyosis. Abscess is considered less likely. ACT 112: Negative or not required by law. Electronically signed by: Aram Ramírez M.D. 06/11/2022 4:05 PM
[2022-06-11] MEDS ORDERED: OR MISCELLANEOUS MED ONE (16:48)
[2022-06-11] MEDS: PATIENT'S OWN ORAL CONTRACEPTIVE PO SCH ×2 (17:26→22:55)
[2022-06-11] MEDS ORDERED: ACETAMINOPHEN 325 MG TAB PO PRN (17:39)
[2022-06-11] MEDS ORDERED: ONDANSETRON INJ 2 MG/ML 2 ML VIAL IV PRN (17:39)
--- NOTE | 2022-06-11 18:43 | OB/GYN Consultation ---
Date of Consultation June 11, 2022 Assessment & Plan (1) Vaginal bleedin-year-old -0-0-1 female with long history of abnormal uterine bleeding, heavy periods, presenting today with an episode of heavy vaginal bleeding and anemia, requiring blood transfusion, Vital signs stable afebrile, Hemodynamically stable, coags within normal limits, pelvic ultrasound normal with thin 2 mm endometrial lining Plan to admit, monitor, labs, 2 units of packed red blood cell is planned by ER team, increase the dose of estrogen/progestin combination control pill until bleeding stops, Continue to monitor closely, All questions were answered. (2) Dysfunctional uterine bleeding: (3) Acute blood loss anemia: (4) Anemia: History of Present Illness Reason for Consultation: Heavy vaginal bleeding, anemia History of Present Illness Patient is a 26-year-old G0 female who has been having irregular and heavy menstrual cycles since April 2021. She was admitted to hospital twice for the last 2 months once year and once in [facility]. She has received blood transfusions and hormonal therapy to stop her bleeding. She had baby about 2 years ago after which she had Mirena IUD placed. She had no bleeding for about a year and then IUD was misplaced causing her severe cramping. IUD was removed and she was put on Nexplanon implant. After that she started to have heavy and irregular vaginal bleeding episodes and then decision was made to remove the Nexplanon. She was then placed on Ortho-Novum which she has been taking in a cyclic manner, 3 weeks on and 1 week off. She stopped the control pill and then started to have bleeding on that week when she was off from her control pill. She started the pill in 7 days but kept bleeding irregularly. She has been changing diaper every 2 hours and passing clots since last night. She has also seen hematology last month and was told that she does not have a bleeding disorder but she has iron deficiency anemia. She has received IV iron therapy 2 times and then she was scheduled for the third 1 tomorrow morning. When she came here she was feeling dizzy and lightheaded and started on IV fluid bolus by her ER physician. She feels better now and able to go to use the bathroom. Her hemoglobin was 7 and she was ordered 2 units of packed red blood cells by ER team. She is still waiting for that. She denies abdominal pain, fever chills, nausea or vomiting. She has been with same partner all the time and does not use condoms regularly. Her test has been negative. She was recommended by ER team to be admitted under [facility] to get blood transfusion as well as stay overnight for observation and she agreed with the plan. Her US is normal/ negative with thin endometrium of 2 mm. I will take her care from now on and continue with the same control pill on a higher dose, 2 tabs twice daily for 24 hours and then decrease to 1 tab 3 times daily for 1 day and then 1 tab bid for a few days until bleeding stops completely and then once a day continuously without break. Allergies Allergy/AdvReac Type Severity Reaction Status Date / Time latex Allergy Intermediate ITCHY HIVES Verified 06/11/22 15:21 Home Medications Medication Instructions Recorded Confirmed Type Iron Iv 1 dose IV DIRECTED 06/11/22 06/11/22 History ibuprofen 800 mg tablet 800 mg PO BID PRN Pain 06/11/22 06/11/22 History norethindrone acetate 5 mg tablet 5 mg PO DAILY 06/11/22 06/11/22 History Patient History Medical History Abnormal uterine bleeding No pertinent family history Surgical History No pertinent past surgical history Social History Smoking Status: Never smoker Second Hand Exposure: No; Hx Alcohol Use: No Hx Substance Use: No Preferred Language: Danish Communication Ability: Effective Zigzag Machine Operator Required: No Beliefs That Will Affect Care: None Current Living Situation: Alone Current Living Situation Comment: daughter Feels Safe at Home: Yes Assistive Devices: None Review of Systems Constitutional: as per Subjective / HPI Physical Exam Constitutional: WD/WN, vitals as above well developed, well nourished and comfortable Gastrointestinal (Abdomen): normal bowel sounds, soft, nontender, no hepatosplenomegaly Genitourinary: normal external appearance (small blood on ext genitalia) Speculum/Bimanual Exam: normal bimanual exam, normal appearance of the vagina (2=3 ml blood), normal appearance of the cervix (no active bleeding), normal vaginal palpation and normal cervical palpation Uterus RV, normal size, NT 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: 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, NT Results & Data Vital Signs (Past 12 Hours) Vital Signs Temp Pulse Resp BP Pulse Ox O2 Del Method 06/11/22 16:00 113/70 06/11/22 15:09 83 19 100 06/11/22 15:01 83 20 100 06/11/22 15:01 123/84 06/11/22 15:00 84 18 100 06/11/22 14:50 94 H 16 100 06/11/22 14:40 86 18 100 06/11/22 14:41 85 06/11/22 14:35 88 17 147/98 H 100 Room Air 06/11/22 12:59 36.8 C 106 H 18 134/80 99 Room Air Laboratory Results Lab Results 06/11/22 06/11/22 06/11/22 Range/Units 14:20 14:20 14:20 WBC 9.42 (4.8-10.8) K/ul RBC 2.92 L (4.20-5.40) M/uL Hgb 7.0 L (12.0-16.0) g/dl Hct 23.9 L (37.0-47.0) % MCV 81.8 (80.0-100.0) fL MCH 24.0 L (25.0-34.0) pg MCHC 29.3 L (32.0-36.0) g/dL RDW Std Deviation 72.1 H (36.4-46.3) fL RDW Coeff of Thomas 24.2 H (11.5-14.5) % Plt Count 356 (130-400) K/uL MPV 10.1 (9.4-12.4) fL PT (9.0-12.0) Seconds INR (0.9-1.1) APTT (21.0-31.0) Seconds PTT Ratio Sodium 140 (136-145) mmol/L Potassium 4.5 (3.5-5.1) mmol/L Chloride 109 H (98-107) mmol/L Carbon Dioxide 26 (21-32) mmol/L Anion Gap 5 (3-11) BUN 10 (6-23) mg/dl Creatinine 0.63 (0.6-1.2) mg/dl Est Cr Clr Drug Dosing 123.9 ml/min Est GFR ( Amer) 145.5 ml/min Est GFR (Non-Af Amer) 125.5 ml/min BUN/Creatinine Ratio 15.9 (10-20) Glucose 101 H (70-99(Fasting)) mg/dl Calcium 8.8 (8.6-10.3) mg/dl HCG, Quant mIU/ml SARS-CoV-2, RNA, NAAT (NEGATIVE) Blood Type O Positive Antibody Screen POSITIVE A Antibody Identification Anti-K Antigen Identification K Antigen - NEGATIVE Crossmatch See Detail 06/11/22 06/11/22 06/11/22 Range/Units 14:20 14:49 14:53 WBC (4.8-10.8) K/ul RBC (4.20-5.40) M/uL Hgb (12.0-16.0) g/dl Hct (37.0-47.0) % MCV (80.0-100.0) fL MCH (25.0-34.0) pg MCHC (32.0-36.0) g/dL RDW Std Deviation (36.4-46.3) fL RDW Coeff of Thomas (11.5-14.5) % Plt Count (130-400) K/uL MPV (9.4-12.4) fL PT 10.5 (9.0-12.0) Seconds INR 1.0 (0.9-1.1) APTT 23.4 (21.0-31.0) Seconds PTT Ratio 0.9 Sodium (136-145) mmol/L Potassium (3.5-5.1) mmol/L Chloride (98-107) mmol/L Carbon Dioxide (21-32) mmol/L Anion Gap (3-11) BUN (6-23) mg/dl Creatinine (0.6-1.2) mg/dl Est Cr Clr Drug Dosing ml/min Est GFR ( Amer) ml/min Est GFR (Non-Af Amer) ml/min BUN/Creatinine Ratio (10-20) Glucose (70-99(Fasting)) mg/dl Calcium (8.6-10.3) mg/dl HCG, Quant < 1 mIU/ml SARS-CoV-2, RNA, NAAT NEGATIVE (NEGATIVE) Blood Type Antibody Screen Antibody Identification Antigen Identification Crossmatch (4) Anemia Anemia type: unspecified type Qualified Code(s): D64.9 - Anemia, unspecified
[2022-06-11] MEDS: LACTATED RINGER'S 1,000 ML IV SCH (20:03)
--- NOTE | 2022-06-11 23:07 | Gynecologic Progress Note ---
Date of Service June 11, 2022 Assessment & Plan Admission and Anticipated Discharge Date Admission Date: June 11, 2022 Subjective Patient is getting 1st unit of PRBC Received 2 tbs of her BCP Bleeding continued but slowed down, soaked 1 large pad and passing small cloths Continue 2 tbs bid, then decrease to tid/ bid and taper down to continuous once a day Continue to monitor closely CBC in am Results & Data Vital Signs (Past 12 Hours) Vital Signs Temp Pulse Pulse Resp BP BP Pulse Ox 06/11/22 22:05 37 C 90 18 126/63 100 06/11/22 21:35 37 C 97 H 18 128/64 100 06/11/22 21:20 36.8 C 95 H 18 141/76 H 100 06/11/22 20:59 36.8 C 97 H 18 126/67 100 06/11/22 19:30 36.8 C 94 H 18 132/75 100 06/11/22 19:20 81 18 118/67 100 06/11/22 16:00 113/70 06/11/22 15:09 83 19 100 06/11/22 15:01 83 20 100 06/11/22 15:01 123/84 06/11/22 15:00 84 18 100 06/11/22 14:50 94 H 16 100 06/11/22 14:40 86 18 100 06/11/22 14:41 85 06/11/22 14:35 88 17 147/98 H 100 06/11/22 12:59 36.8 C 106 H 18 134/80 99 O2 Del Method 06/11/22 22:05 06/11/22 21:35 06/11/22 21:20 06/11/22 20:59 06/11/22 19:30 Room Air 06/11/22 19:20 Room Air 06/11/22 16:00 06/11/22 15:09 06/11/22 15:01 06/11/22 15:01 06/11/22 15:00 06/11/22 14:50 06/11/22 14:40 06/11/22 14:41 06/11/22 14:35 Room Air 06/11/22 12:59 Room Air
[2022-06-12 07:00] LABS: Basophils # (auto) 0.11 K/uL (0-0.2); Eosinophils # (auto) 0.07 K/uL (0-0.50); Eosinophils % (auto) 0.6 %; Hematocrit (blood only) 27.6 % (37.0-47.0); Hemoglobin 8.6 g/dl (12.0-16.0); Immature Granulocytes # (auto) 0.06 K/uL (0.01-0.20); Immature Granulocytes % (auto) 0.5 %; Lymphocytes # (auto) 1.81 K/uL (1.2-3.4); Lymphocytes % (auto) 15.9 %; Mean Corpuscular Hemoglobin 25.7 pg (25.0-34.0); Mean Corpuscular Hgb Conc 31.2 g/dL (32.0-36.0); Mean Corpuscular Volume 82.4 fL (80.0-100.0); Mean Platelet Volume 10.1 fL (9.4-12.4); Monocytes # (auto) 0.63 K/uL (0.11-0.59); Monocytes % (auto) 5.5 %; Neutrophils # (auto) 8.71 K/uL (1.40-6.50); Neutrophils % (auto) 76.5 %; Platelet Count 284 K/uL (130-400); RDW Coefficient of Variation 20.8 % (11.5-14.5); Red Blood Count 3.35 M/uL (4.20-5.40); White Blood Count 11.39 K/ul (4.8-10.8)
[2022-06-12 07:28] LABS: Anisocytosis Present; Polychromasia 1+
[2022-06-12] MEDS: LACTATED RINGER'S 1,000 ML IV SCH (09:38)
[2022-06-12] MEDS ORDERED: Nursing to Pharmacy Communication SCH (10:15)
--- NOTE | 2022-06-12 13:11 | Gynecologic Progress Note ---
Date of Service June 12, 2022 Assessment & Plan Admission and Anticipated Discharge Date Admission Date: June 11, 2022 Subjective doing better. less bleeding and clotting. No dizziness or SOB. Physical Exam Constitutional: WD/WN, vitals as above Results & Data Vital Signs (Past 12 Hours) Vital Signs Temp Pulse Pulse Resp BP BP Pulse Ox 06/12/22 11:45 37.0 C 86 18 125/66 99 06/12/22 08:20 37.0 C 84 18 123/65 100 06/12/22 03:00 37 C 85 18 122/62 100 06/12/22 03:00 37 C 85 18 122/62 100 06/12/22 02:00 36.9 C 80 18 120/70 100 06/12/22 01:30 36.9 C 74 18 105/65 100 06/12/22 01:15 36.8 C 80 18 119/66 100 O2 Del Method 06/12/22 11:45 Room Air 06/12/22 08:20 Room Air 06/12/22 03:00 Room Air 06/12/22 03:00 06/12/22 02:00 06/12/22 01:30 06/12/22 01:15 Laboratory Results 06/11/22 06/11/22 06/11/22 14:20 14:20 14:20 WBC 9.42 RBC 2.92 L Hgb 7.0 L Hct 23.9 L MCV 81.8 MCH 24.0 L MCHC 29.3 L RDW Std Deviation 72.1 H RDW Coeff of Thomas 24.2 H Plt Count 356 MPV 10.1 Immature Gran % (Auto) Neut % (Auto) Lymph % (Auto) [place] % (Auto) Eos % (Auto) Baso % (Auto) Neut # (Auto) Lymph # (Auto) [place] # (Auto) Eos # (Auto) Baso # (Auto) Immature Gran # (Auto) Polychromasia Anisocytosis PT INR APTT PTT Ratio Sodium 140 Potassium 4.5 Chloride 109 H Carbon Dioxide 26 Anion Gap 5 BUN 10 Creatinine 0.63 Est Cr Clr Drug Dosing 123.9 Est GFR ( Amer) 145.5 Est GFR (Non-Af Amer) 125.5 BUN/Creatinine Ratio 15.9 Glucose 101 H Calcium 8.8 HCG, Quant SARS-CoV-2, RNA, NAAT Blood Type O Positive Antibody Screen POSITIVE A Antibody Identification Anti-K Antibody ID Comment Antigen Identification K Antigen - NEGATIVE Crossmatch See Detail 06/11/22 06/11/22 06/11/22 14:20 14:49 14:53 WBC RBC Hgb Hct MCV MCH MCHC RDW Std Deviation RDW Coeff of Thomas Plt Count MPV Immature Gran % (Auto) Neut % (Auto) Lymph % (Auto) [place] % (Auto) Eos % (Auto) Baso % (Auto) Neut # (Auto) Lymph # (Auto) [place] # (Auto) Eos # (Auto) Baso # (Auto) Immature Gran # (Auto) Polychromasia Anisocytosis PT 10.5 INR 1.0 APTT 23.4 PTT Ratio 0.9 Sodium Potassium Chloride Carbon Dioxide Anion Gap BUN Creatinine Est Cr Clr Drug Dosing Est GFR ( Amer) Est GFR (Non-Af Amer) BUN/Creatinine Ratio Glucose Calcium HCG, Quant < 1 SARS-CoV-2, RNA, NAAT NEGATIVE Blood Type Antibody Screen Antibody Identification Antibody ID Comment Antigen Identification Crossmatch 06/12/22 06:04 WBC 11.39 H RBC 3.35 L Hgb 8.6 L Hct 27.6 L MCV 82.4 MCH 25.7 MCHC 31.2 L RDW Std Deviation 62.0 H RDW Coeff of Thomas 20.8 H Plt Count 284 MPV 10.1 Immature Gran % (Auto) 0.5 Neut % (Auto) 76.5 Lymph % (Auto) 15.9 [place] % (Auto) 5.5 Eos % (Auto) 0.6 Baso % (Auto) 1.0 Neut # (Auto) 8.71 H Lymph # (Auto) 1.81 [place] # (Auto) 0.63 H Eos # (Auto) 0.07 Baso # (Auto) 0.11 Immature Gran # (Auto) 0.06 Polychromasia 1+ Anisocytosis Present PT INR APTT PTT Ratio Sodium Potassium Chloride Carbon Dioxide Anion Gap BUN Creatinine Est Cr Clr Drug Dosing Est GFR ( Amer) Est GFR (Non-Af Amer) BUN/Creatinine Ratio Glucose Calcium HCG, Quant SARS-CoV-2, RNA, NAAT Blood Type Antibody Screen Antibody Identification Antibody ID Comment Antigen Identification Crossmatch
[2022-06-12] MEDS ORDERED: PATIENT'S OWN ORAL CONTRACEPTIVE PO SCH (17:45)
[2022-06-13 12:53] LABS: Chlam trach RNA(Genit,Ureth,Ur Not Detected (NotDetected); GC(Neis gon)RNA(Genit,Ureth,Ur Not Detected (NotDetected)
[2022-06-13 12:58] LABS: Trichomonas vag RNA GenitalFem Not Detected (NotDetected)
== END 2022-06-12 14:15 | disposition home or self-care (01) ==
LOC: ED 12:53 → INTOOBSV 17:39 → 4E1 17:39